=== PATIENT | female | born 1975 | race Hispanic/Latino ===

== ENCOUNTER 2019-06-04 18:46 | Observation (INO) | payer OTHER, SELFPAY ==
[2019-06-04 19:46] LABS: #Eosinphils 0.1 thou/uL (0.0-0.7); #Lymphocytes 2.1 thou/uL (1.20-3.40); #Monocytes 0.6 thou/uL (0.11-0.59); #Neutrophils 6.9 thou/uL (1.40-6.50); %Basophils 0.5 % (0.0-1.0); %Eosinophils 1.4 % (0.0-10.0); %Lymphocytes 21.3 % (21.0-51.0); %Monocytes 6.4 % (0.0-10.0); %Neutrophils 70.5 % (42.0-75.0); Hemoglobin 15.2 g/dL (12.0-16.0); Mean Corpuscular HGB CONC 33.8 g/dL (32.0-36.0); Mean Corpuscular Hemoglobin 29.9 pg (27.0-31.0); Mean Corpuscular Volume 88.7 fL (78.0-98.0); Mean Platelet Volume 8.2 fL (7.4-10.4); Platelet Count 242 thou/uL (130-400); RBC Distribution Width 12.4 % (11.5-14.5); Red Blood Cell (RBC) Count 5.09 mill/uL (4.20-5.40); White Blood Cell (WBC) Count 9.7 thou/uL (4.8-10.8)
[2019-06-04 19:56] LABS: BHCG - Serum Negative (NEGATIVE); Pregs Control Background? CLEAR/WHITE (CLR/WHITE); Pregs Control Bar Appear? YES (CONTROL BAR)
--- NOTE | 2019-06-04 20:06 | RAD ---
XR Chest 1 View Portable History: Altered mental status Comparison: Radiograph 2016 Findings: Lungs are clear. No pneumothorax or effusion. Cardiac silhouette and mediastinal contours a re within normal limits. Impression: No acute intrathoracic abnormality.
[2019-06-04 20:10] LABS: INR-International Normal Ratio 1.1; PTT 28.1 SEC (22.9-36.1); Prothrombin Time 13.7 SEC (12.0-14.7)
[2019-06-04 20:21] LABS: ALT (SGPT) 22 U/L (8-55); AST (SGOT) 26 U/L (5-34); Acetaminophen Less than 6.0 mcg/mL (10.0-30.0); Alcohol Less than 10 mg/dL (Less than 10); Alkaline Phosphatase 88 U/L (40-150); Anion Gap 18 mmol/L (10-20); BUN (Urea Nitrogen) 10 mg/dL (7.0-18.7); Bilirubin, Total 0.5 mg/dL (0.2-1.2); Calc. Creatinine Clearance 0 mL/min (70-130); Calcium 9.7 mg/dL (7.8-10.44); Carbon Dioxide 20 mmol/L (22-29); Chloride 106 mmol/L (98-107); Estimated GFR-MDRD Greater than 90; Globulin 3.8 g/dL (2.4-3.5); Glucose 121 mg/dL (70-105); Potassium 4.5 mmol/L (3.5-5.1); Protein, Total 7.8 g/dL (6.0-8.3); Salicylate Less than 8.0 mg/dL (15.0-30.0); Sodium 139 mmol/L (136-145)
--- NOTE | 2019-06-04 20:22 | CT ---
CT OF BRAIN WITHOUT CONTRAST: Comparison: 08-20-16 History: Altered mental status, confusion after heavy drinking last night. Technique: Multiple contiguous axial images were obtained in a CT of the brain without contrast. FINDINGS: There is a stable small area of focal encephalomalacia in the right frontal lobe. The brain is otherw ise normal in morphology and attenuation without focal lesions or confluent areas of infarction. Ther e is no evidence of hydrocephalus, intracranial hemorrhage, or extraaxial fluid collections. The calvarium and overlying soft tissues are unremarkable. The visualized paranasal sinuses and masto id air cells are well aerated. IMPRESSION: No evidence of acute intracranial abnormality. POS: [facility]
[2019-06-04 20:31] LABS: Bilirubin Negative (Negative); Blood, Urine Negative (Negative); Clarity Clear (Clear); Glucose, Urine (Dipstick) Normal (Negative); Leukocyte Negative Leu/uL (Negative); Nitrite Negative (Negative); Protein, Urine (Dipstick) 20 mg/dL (Neg-Trace); Urobilinogen Normal mg/dL (Less than 2)
[2019-06-04 20:42] LABS: Amphetamine Not Detected (NotDetected); Barbiturates Screen Not Detected (NotDetected); Benzodiazepine Screen Not Detected (NotDetected); Cocaine Metabolite Screen Not Detected (NotDetected); Medtox Control Line Valid? VALID (VALID); Medtox Reader # READER 4; Methadone Not Detected (NotDetected); Methamphetamine Not Detected (NotDetected); Opiate Screen Not Detected (NotDetected); Oxycodone Screen Not Detected (NotDetected); Phencyclidine (PCP) Not Detected (NotDetected); THC/Cannabinoid Screen Not Detected (NotDetected); Tricyclic Screen Not Detected (NotDetected)
[2019-06-04] MEDS ORDERED: Ondansetron PF 4 MG/2 ML Vial IVP PRN (23:51)
[2019-06-04] MEDS ORDERED: Ondansetron ODT 4 MG TAB SL PRN (23:51)
[2019-06-04] MEDS ORDERED: Acetaminophen 325 MG TAB PO PRN (23:51)
[2019-06-04] MEDS ORDERED: Sodium Chloride 0.9% 1,000 ML IV SCH (23:51)
[2019-06-05 00:35] VITALS: BMI 34.7
[2019-06-05 05:12] LABS: #Eosinphils 0.1 thou/uL (0.0-0.7); #Lymphocytes 2.3 thou/uL (1.20-3.40); #Monocytes 0.5 thou/uL (0.11-0.59); #Neutrophils 3.5 thou/uL (1.40-6.50); %Basophils 0.5 % (0.0-1.0); %Eosinophils 2.2 % (0.0-10.0); %Monocytes 7.9 % (0.0-10.0); %Neutrophils 54.5 % (42.0-75.0); Hemoglobin 14.1 g/dL (12.0-16.0); Mean Corpuscular HGB CONC 33.6 g/dL (32.0-36.0); Mean Corpuscular Volume 89.2 fL (78.0-98.0); Mean Platelet Volume 8.1 fL (7.4-10.4); Platelet Count 229 thou/uL (130-400); RBC Distribution Width 12.3 % (11.5-14.5); Red Blood Cell (RBC) Count 4.68 mill/uL (4.20-5.40); White Blood Cell (WBC) Count 6.5 thou/uL (4.8-10.8)
[2019-06-05 05:17] LABS: ALT (SGPT) 15 U/L (8-55); AST (SGOT) 16 U/L (5-34); Albumin 3.7 g/dL (3.5-5.0); Alkaline Phosphatase 79 U/L (40-150); Anion Gap 11 mmol/L (10-20); BUN (Urea Nitrogen) 9 mg/dL (7.0-18.7); Bilirubin, Total 0.5 mg/dL (0.2-1.2); Calc. Creatinine Clearance 167 mL/min (70-130); Calcium 9.3 mg/dL (7.8-10.44); Carbon Dioxide 24 mmol/L (22-29); Chloride 110 mmol/L (98-107); Estimated GFR-MDRD Greater than 90; Glucose 97 mg/dL (70-105); Potassium 3.7 mmol/L (3.5-5.1); Protein, Total 6.7 g/dL (6.0-8.3); Sodium 141 mmol/L (136-145)
[2019-06-05] MEDS ORDERED: Lorazepam 1 MG TAB PO PRN (05:44)
[2019-06-05] MEDS ORDERED: Ondansetron PF 4 MG/2 ML Vial IVP PRN (05:51)
[2019-06-05] MEDS ORDERED: Ondansetron ODT 4 MG TAB PO PRN (05:51)
[2019-06-05] MEDS ORDERED: Dextrose 5% in Water 1,000 ML IV PRN (05:51)
[2019-06-05] MEDS ORDERED: Senokot S 8.6-50 MG TAB PO PRN (05:51)
[2019-06-05] MEDS ORDERED: Dextrose 50% Abboject 50 ML SYRINGE SLOW IVP PRN (05:51)
[2019-06-05] MEDS ORDERED: diphenhydrAMINE 50 MG/ML VIAL IVP PRN (05:51)
[2019-06-05] MEDS ORDERED: HumaLOG 300 UNITS/3 ML VIAL SC PRN (05:51)
[2019-06-05] MEDS ORDERED: Acetaminophen 500 MG TAB PO PRN (05:51)
[2019-06-05] MEDS ORDERED: hydrOXYzine 25 MG TAB PO PRN (05:51)
[2019-06-05] MEDS ORDERED: FLUoxetine HCl 20 MG CAP PO SCH (09:00)
[2019-06-05] MEDS: Pioglitazone HCl 15 MG TAB PO SCH (09:19)
[2019-06-05] MEDS: Topiramate 25 MG TAB PO SCH ×2 (09:19→21:04)
[2019-06-05] MEDS: metFORMIN 500 MG TAB PO SCH ×2 (09:19→16:32)
[2019-06-05] MEDS: Sodium Chloride 0.9% 1,000 ML IV SCH ×2 (09:37→16:33)
--- NOTE | 2019-06-05 12:16 | HP ---
CHIEF COMPLAINT: Unresponsive. HISTORY OF PRESENT ILLNESS: Family members report the patient had a loss in the family, they were out drinking, commiserating in the person's memory. The patient went home to whip it off on the night of the . When family members checked on her in the morning, she was unresponsive, had only few acute episodes where the patient would make some sense and move and did not have anything to eat or drink all day, and presented to the emergency department later that evening after not improving after rest. Evaluation in the emergency department was largely unremarkable. Family member states that she has done this approximately one time before, but has had history of seizure, is a controlled diabetic otherwise, placed on observation for further workup. Nursing staff reports the patient has been unresponsive the entire night guard. No longer withdrawing to pain. However, at bedside, I administered smelling salts. The patient did withdraw and appropriately move head and attempted to remove this smelling salts away with right arm. The patient's baseline tone of extremities within normal at bedside. Reflexes are 2+ bilaterally. Otherwise, the patient purposefully rolling eyes in back of the head. Unable to participate in review of symptoms otherwise or more formal review of past medical, social, surgical history. ALLERGIES: NO KNOWN DRUG ALLERGIES. PAST MEDICAL HISTORY: Diabetes type 2, asthma, history of CVA, anxiety, arthritis. Followed by Dr. Jenkins for vision check. MEDICATIONS: Currently taking; 1. Metformin 1000 mg twice a day. 2. Glipizide XL 10 mg once a day. 3. Lisinopril 5 mg once a day. 4. Atorvastatin 20 mg once a day. 5. Pioglitazone 30 mg once a day. 6. P.r.n. albuterol 2.5 mg per 3 mL nebulized solution for cough, wheeze. 7. Fluoxetine 20 mg for anxiety. PAST SURGICAL HISTORY: Status post appendectomy in 2012. SOCIAL HISTORY: Nonsmoker. Living with spouse. Has multiple children living in city. LABORATORY DATA: White blood cell count of 6.5, hemoglobin of 14.1, platelet count of 229, INR 1.1. Sodium 141, potassium of 3.7, creatinine of 0.5. Point of care glucose last is 96. Ammonia of 35. Troponin x1 less than 0.01. TSH of 2.4. Albumin of 3.7. AST of 16, ALT 15. Lactic acid of 1.7. CK of 49. Urinalysis normal with specific gravity of 1.02. Toxicology negative. Undetectable alcohol, salicylates, and acetaminophen. Chest x-ray, unremarkable. Brain CT without acute intracranial changes. PHYSICAL EXAMINATION: VITAL SIGNS: Review of vital signs; temperature of 98.5, pulse of 62, respiratory rate of 18, oxygen saturation 96% on room air, blood pressure 123/64. GENERAL: The patient is not responding to verbal cues, does not respond to commands. As above per HPI, smelling salts did produce above response. HEENT: Unable to assess pupils as the patient will not allow them to be examined. Otherwise, head is normocephalic and atraumatic. HEART: Regular rate and rhythm. No murmurs auscultated. LUNGS: Clear to auscultation bilaterally. No rubs or wheezes. ABDOMEN: Positive bowel sounds throughout. No apparent tenderness. EXTREMITIES: Lower extremities without cyanosis or edema. NEUROLOGIC: Unable to assess orientation. ASSESSMENT AND PLAN: Acute catatonia, grief reaction, diabetes type 2, history of stroke. Need to rule out seizure disorder, so I ordered EEG. Most likely a grief style reaction. We would look to titrate SSRI and consider dual therapy on discharge. At this time, I do not feel a need to pursue MRI. If the EEG is abnormal, we will consult Neurology and start antiepileptics. At this point in time, p.rAguilan. Ativan only. We will attempt to get EEG prior to giving any brainwave altering medications. Job ID: [id number]
[2019-06-05] MEDS ORDERED: Morphine 4 MG/ML VIAL SLOW IVP PRN (13:10)
[2019-06-05] MEDS ORDERED: Ketorolac Tromethamine 30 MG/ML VIAL IVP SCH (13:45)
[2019-06-05] MEDS ORDERED: Lorazepam 2 MG/ML VIAL SLOW IVP SCH (13:45)
[2019-06-05] MEDS ORDERED: Morphine 4 MG/ML VIAL SLOW IVP SCH (13:45)
[2019-06-05] MEDS: Haloperidol Lactate 5 MG/ML VIAL SLOW IVP SCH (21:02)
[2019-06-05] MEDS: Lorazepam 2 MG/ML VIAL SLOW IVP SCH (21:02)
[2019-06-06] MEDS: Sodium Chloride 0.9% 1,000 ML IV SCH (02:51)
[2019-06-06] MEDS: Lorazepam 2 MG/ML VIAL SLOW IVP SCH (05:14)
[2019-06-06 07:19] LABS: #Eosinphils 0.3 thou/uL (0.0-0.7); #Monocytes 0.4 thou/uL (0.11-0.59); #Neutrophils 4.5 thou/uL (1.40-6.50); %Basophils 0.1 % (0.0-1.0); %Lymphocytes 28.2 % (21.0-51.0); %Monocytes 5.6 % (0.0-10.0); %Neutrophils 62.1 % (42.0-75.0); Hemoglobin 13.8 g/dL (12.0-16.0); Mean Corpuscular HGB CONC 34.6 g/dL (32.0-36.0); Mean Corpuscular Hemoglobin 31.3 pg (27.0-31.0); Mean Corpuscular Volume 90.4 fL (78.0-98.0); Mean Platelet Volume 8.1 fL (7.4-10.4); Platelet Count 206 thou/uL (130-400); RBC Distribution Width 12.1 % (11.5-14.5); White Blood Cell (WBC) Count 7.2 thou/uL (4.8-10.8)
[2019-06-06 07:22] LABS: Mononucleosis NEGATIVE (NEGATIVE)
[2019-06-06 07:23] LABS: MONO NEGATIVE CONTROL ZONE White (Negative) (White); MONO POSITIVE CONTROL Pink Line (Positive) (PINK/RED)
[2019-06-06 07:37] LABS: ALT (SGPT) 16 U/L (8-55); AST (SGOT) 14 U/L (5-34); Albumin 3.3 g/dL (3.5-5.0); Alkaline Phosphatase 74 U/L (40-150); Anion Gap 11 mmol/L (10-20); BUN (Urea Nitrogen) 7 mg/dL (7.0-18.7); Bilirubin, Total 0.5 mg/dL (0.2-1.2); Calc. Creatinine Clearance 186 mL/min (70-130); Calcium 8.5 mg/dL (7.8-10.44); Carbon Dioxide 20 mmol/L (22-29); Chloride 110 mmol/L (98-107); Estimated GFR-MDRD Greater than 90; Globulin 2.7 g/dL (2.4-3.5); Glucose 112 mg/dL (70-105); Potassium 3.7 mmol/L (3.5-5.1); Sodium 137 mmol/L (136-145)
[2019-06-06] MEDS: metFORMIN 500 MG TAB PO SCH ×2 (09:32→17:02)
[2019-06-06] MEDS: Aripiprazole 10 MG TAB PO SCH (09:32)
[2019-06-06] MEDS: Pioglitazone HCl 15 MG TAB PO SCH (09:32)
--- NOTE | 2019-06-06 10:09 | EEG ---
Referring Physician: Kenya ALTMAN EEG # [id number] TEST TYPE: ROUTINE PORTABLE INPATIENT REPORT: AN EEG USING THE INTERNATIONAL TEN-TWENTY SYSTEM OF ELECTRODE PLACEMENT WAS PERFORMED. The waking background is a 9 hertz alpha frequency. The patient remained awake throughout the study. Photic stimulation was unremarkable. No epileptiform features were seen. EMG and movement artifact obscured portions of the record. IMPRESSION: THIS IS A NORMAL AWAKE EEG. Divinity Professor: HENRRY Letterer: [email or web address] SU
[2019-06-06] MEDS: Haloperidol Lactate 5 MG/ML VIAL SLOW IVP SCH (21:18)
--- NOTE | 2019-06-06 23:19 | PRG ---
DATE OF SERVICE: 06/06/2019 HISTORY OF PRESENT ILLNESS: The patient appeared to respond somewhat to Haldol last night, woke up and is able to open eyes and speak words for the first time. Walking program ambulated the patient to 30 feet. The patient started tolerating some diet. has some concerns about the patient's weakness and low ambulation level regarding going home. EEG appears to be normal. This appears all to be secondary to stress reaction. Family on board, was transitioned to [facility] and likely home tomorrow. PHYSICAL EXAMINATION: VITAL SIGNS: Temperature of 98.3, pulse of 66, respiratory rate of 14, oxygen saturation of 96% on room air, and blood pressure of 121/79. GENERAL: The patient is minimally talkative, following simple commands, moving extremities equally. She is alert, Slovenian-speaking, family at bedside. HEENT: Head is normocephalic and atraumatic. Extraocular movements are intact. Sclerae white. Oral mucosa is moist. NECK: Supple. HEART: Regular rate and rhythm. LUNGS: Clear to auscultation bilaterally. No rubs or wheezes. ABDOMEN: Soft and nontender. Positive bowel sounds throughout. EXTREMITIES: Lower extremities without cyanosis or edema. NEUROLOGIC: The patient is alert x1 at this point, unable to get full review of systems or orientation secondary to still near catatonic state with very minimal movements and 1 to 2 word phrases. ASSESSMENT/PLAN: Acute catatonia secondary to stress reaction. Continuing Haldol tonight and initiation of Abilify crossover this morning and likely to discharge the patient tomorrow as long as she continues to improve with gait. Garcia was discontinued and the nurse does report that she did have urination following a discontinuation of Garcia. IV fluids were discontinued today, the patient takes p.o. Job ID: [id number]
[2019-06-07] MEDS: Pioglitazone HCl 15 MG TAB PO SCH (08:17)
[2019-06-07] MEDS: Aripiprazole 10 MG TAB PO SCH (08:18)
[2019-06-07] MEDS: metFORMIN 500 MG TAB PO SCH (08:18)
[2019-06-07 08:39] VITALS: BP 123/73; TEMP 98.4
--- NOTE | 2019-06-08 14:07 | DIS ---
DATE OF ADMISSION: 06/04/2019 DATE OF DISCHARGE: 06/07/2019 CHIEF COMPLAINT: Unresponsive. HISTORY OF PRESENT ILLNESS: The patient commiserate with family over the loss of a loved one with some alcoholic beverages, went to bed as nothing unusual occurs. The patient is a controlled diabetic regarding her blood glucoses. In the morning when family awoke, found the patient to be unresponsive and EMS was dispatched. The patient continued to be unresponsive despite sternal rubs, pinches, etc. When evaluated in the emergency department, brain CT was unremarkable. Chest x-ray was unremarkable. No signs or symptoms of infection. However, the patient refused to respond to commands or stimuli. The patient did however have negative alcohol level, UDS that showed negative heavy metal panel, negative mono, negative throat culture given the patient was having sore throat prior to all those happening. EEG showed a wakeful state despite patient appearing to be unresponsive. The patient somewhat saw that she held her urine and required Garcia catheterization, was maintained on IV fluids for a better part of two days to hydrate patient following lack of hydration after drinking alcohol, not eating or drinking anything. Ruled acute catatonia secondary to grief reaction. The patient did respond to Haldol and transitioned to Abilify prior to discharge, was able to ambulate to restroom and use restroom, tolerated diet, and started speaking again prior to discharge, did have elevated prolactin which can be seen in seizures. However, EEG was normal. We will follow up close clinic followup in the next week on an outpatient basis with Dr. Alex Chakraborty. DISCHARGE MEDICATIONS: Include: 1. Albuterol sulfate p.r.n. nebs. 2. Fluoxetine discontinued 20 mg tablets. 3. Glipizide 10 mg tablet b.i.d. 4. Metformin 1000 mg b.i.d. 5. Actos 30 mg daily. 6. Ativan 0.5 mg q.8 hours p.r.n. anxiety. 7. Abilify 10 mg p.o. at bedtime. DISCHARGE DIET: Regular. DISCHARGE ACTIVITY: As tolerated up with assistance initially. DISCHARGE CONDITION: Fair. Job ID: [id number]
[2019-06-08 22:07] LABS: Arsenic - Blood 6 ug/L (2-23); Lead - Blood None Detected ug/dL (0-4); Mercury - Blood None Detected ug/L (0.0-14.9)
--- NOTE | 2019-06-10 15:15 | EKG ---
Test Reason : Blood Pressure : / mmHG Vent. Rate : 069 BPM Atrial Rate : 069 BPM P-R Int : 126 ms QRS Dur : 076 ms QT Int : 422 ms P-R-T Axes : 018 031 024 degrees QTc Int : 452 ms Normal sinus rhythm Normal ECG Confirmed by MARE MEDINA D.O. ([id number]), editor sound RADHA OROZCO ([id number]) on 06/10/2019 3:14:19 PM Referred By: Confirmed By:MARE MEDINA D.O.
== END 2019-06-07 10:30 | disposition home or self-care (01) ==
LOC: ERS 18:46 → SURG B 23:17
PROVIDERS: ADMIT Family Medicine; ATTEND Family Medicine
DX: R40.20 Unspecified coma (principal); F43.21 Adjustment disorder with depressed mood; E11.9 Type 2 diabetes mellitus without complications; Z79.84 Long term (current) use of oral hypoglycemic drugs; Z79.899 Other long term (current) drug therapy; Z86.73 Personal history of transient ischemic attack (TIA), and cerebral infarction without residual deficits
CPT/HCPCS: 36415; 36416; 51701; 51702; 51798; 70450; 71045; 80053; 80306; 80307; 81003; 82140; 82175; 82550; 83605; 83655; 83825; 84146; 84443; 84484; 84703; 85025; 85610; 85730; 86308; 87070; 93005; 95816; 95819; 96360; 96361; 96374; 96375; 96376; A4353; G0378; J1630; J1885; J2060; J2270

== ENCOUNTER 2024-10-13 11:57 | Outpatient (CLI) | payer OTHER, SELFPAY | END 2024-10-13 11:58 | disposition home or self-care (01) | LOC: SCSRAD 11:57 | PROVIDERS: ATTEND Family Medicine | DX: S89.91XA Unspecified injury of right lower leg, initial encounter (principal); S82.001A Unspecified fracture of right patella, initial encounter for closed fracture; M25.461 Effusion, right knee ==

== ENCOUNTER 2025-06-13 19:23 | Inpatient (IN) | payer SELFPAY ==
[~2025-06-13 19:23] MED LIST: Iopamidol-370 76% 500 ML MDV (1 ML CHARGE) ONE
[2025-06-13 20:58] LABS: #Basophils 0.04 10x3/uL (0.0-0.2); #Eosinophils 0.31 10x3/uL (0.0-0.7); #Monocytes 0.55 10x3/uL (0.11-0.59); #Neutrophils 4.13 10x3/uL (1.40-6.50); %Basophils 0.5 % (0.0-1.0); %Eosinophils 4.0 % (0.0-10.0); %Lymphocytes 34.6 % (21.0-51.0); %Monocytes 7.1 % (0.0-10.0); %Neutrophils 53.7 % (42.0-75.0); Hematocrit 42.0 % (36.0-47.0); Hemoglobin 13.5 g/dL (12.0-16.0); Mean Corpuscular Hemoglobin 29.5 pg (27.0-31.0); Mean Corpuscular Volume 91.7 fL (78.0-98.0); Platelet Count 209 10x3/uL (130-400); Red Blood Cell (RBC) Count 4.58 mill/uL (4.20-5.40); White Blood Cell (WBC) Count 7.71 10x3/uL (4.8-10.8)
[2025-06-13 21:17] LABS: ALT (SGPT) 18 U/L (Less than 34); AST (SGOT) 18 U/L (11-34); Albumin 4.2 g/dL (3.1-4.5); Alkaline Phosphatase 91 U/L (40-110); Anion Gap 15 mmol/L (10-20); BUN (Urea Nitrogen) 14 mg/dL (9.8-20.1); Bilirubin, Total 0.4 mg/dL (0.3-1.2); Calc. Creatinine Clearance 0 mL/min (70-130); Calcium 9.4 mg/dL (7.8-10.44); Carbon Dioxide 23 mmol/L (22-29); Chloride 105 mmol/L (98-107); Globulin 3.2 g/dL (2.4-3.5); Glucose 141 mg/dL (70-105); Lipase 15 U/L (8-78); Potassium 3.9 mmol/L (3.5-5.1); Sodium 139 mmol/L (136-145)
[2025-06-13 21:54] LABS: Bacteria/HPF None Seen HPF (None Seen); CAUTI Indications for Culture Pelvic or flank pain; Glucose, Urine (Dipstick) Normal (Negative); Leukocyte 250 Leu/uL (Negative); Protein, Urine (Dipstick) Negative (Neg-Trace); RBC/HPF 0-3 HPF (0-3); Specific Gravity, Urine 1.007 (1.002-1.036)
[2025-06-13 22:12] LABS: Urine Culture Reflex No No
[2025-06-13] MEDS ORDERED: Ondansetron PF 4 MG/2 ML Vial ONE (22:14)
[2025-06-13] MEDS ORDERED: Ketorolac Tromethamine 30 MG (1 mL) VIAL ONE (22:14)
[2025-06-14] MEDS ORDERED: Ondansetron PF 4 MG/2 ML Vial ONE (00:51)
[2025-06-14] MEDS ORDERED: Ondansetron PF 4 MG/2 ML Vial IVP PRN (01:36)
[2025-06-14] MEDS ORDERED: hydrALAZINE 20 MG/ML VIAL SLOW IVP PRN (01:36)
[2025-06-14 02:55] VITALS: BMI 30.3
[2025-06-14 07:26] LABS: #Basophils 0.03 10x3/uL (0.0-0.2); #Eosinophils 0.22 10x3/uL (0.0-0.7); #Monocytes 0.53 10x3/uL (0.11-0.59); #Neutrophils 3.55 10x3/uL (1.40-6.50); %Basophils 0.5 % (0.0-1.0); %Eosinophils 3.5 % (0.0-10.0); %Lymphocytes 31.4 % (21.0-51.0); %Monocytes 8.4 % (0.0-10.0); %Neutrophils 56.0 % (42.0-75.0); Hematocrit 36.0 % (36.0-47.0); Hemoglobin 11.5 g/dL (12.0-16.0); Mean Corpuscular Hemoglobin 28.8 pg (27.0-31.0); Mean Corpuscular Volume 90.2 fL (78.0-98.0); Platelet Count 177 10x3/uL (130-400); Red Blood Cell (RBC) Count 3.99 mill/uL (4.20-5.40); White Blood Cell (WBC) Count 6.33 10x3/uL (4.8-10.8)
[2025-06-14] MEDS ORDERED: Glucagon 1 MG/ML KIT IM PRN (07:28)
[2025-06-14] MEDS ORDERED: Dextrose 50% Abboject 50 ML SYRINGE SLOW IVP PRN (07:28)
[2025-06-14 07:38] LABS: Anion Gap 12 mmol/L (10-20); BUN (Urea Nitrogen) 14 mg/dL (9.8-20.1); Calc. Creatinine Clearance 183 mL/min (70-130); Calcium 8.1 mg/dL (7.8-10.44); Carbon Dioxide 22 mmol/L (22-29); Chloride 110 mmol/L (98-107); Glucose 115 mg/dL (70-105); Potassium 3.7 mmol/L (3.5-5.1); Sodium 140 mmol/L (136-145)
[2025-06-14] MEDS ORDERED: Electrolyte Replacement Protocol 1 EACH FS SCH (09:00)
[2025-06-14] MEDS ORDERED: MD-Gastroview 120 ML BOT ONE (09:16)
[2025-06-14 09:38] LABS: Magnesium 2.0 mg/dL (1.6-2.6)
[2025-06-14] MEDS: Magnesium 2 GM/50 ML(in water) 2 GM in Premix 1 BAG IVPB SCH (12:07)
[2025-06-14] MEDS ORDERED: Albuterol 1.25 MG (3 mL) NEB NEB PRN (14:11)
[2025-06-14 15:59] VITALS: BP 127/74; TEMP 97.4
[2025-06-15] MEDS ORDERED: Lisinopril 5 MG TAB PO SCH (09:00)
== END 2025-06-14 18:20 | disposition home or self-care (01) | DRG 390 ==
LOC: ERS 19:23 → SURG A 06-14 01:36
PROVIDERS: ADMIT Surgery; ATTEND Surgery
DX: K56.609 Unspecified intestinal obstruction, unspecified as to partial versus complete obstruction (principal); I10 Essential (primary) hypertension; E11.9 Type 2 diabetes mellitus without complications; Z98.890 Other specified postprocedural states; Z90.49 Acquired absence of other specified parts of digestive tract; E78.5 Hyperlipidemia, unspecified; F41.9 Anxiety disorder, unspecified; Z86.73 Personal history of transient ischemic attack (TIA), and cerebral infarction without residual deficits; F32.A Depression, unspecified; Z79.899 Other long term (current) drug therapy; Z79.84 Long term (current) use of oral hypoglycemic drugs; Z79.4 Long term (current) use of insulin
CPT/HCPCS: 36415; 36416; 74177; 74250; 80048; 80053; 81001; 83690; 83735; 84100; 85025; 96361; 96374; 96375; 96376; J1885; J2270; J2405; J3010; J3475; J7030; Q9963; Q9967